=== PATIENT | female | born 1985 | race Two or more races ===

== ENCOUNTER 2017-09-25 22:48 | Emergency (ER) | payer OTHER ==
[2017-09-25] MEDS: diphenhydrAMINE HCL 25 MG CAPSULE PO (23:49)
[2017-09-25] MEDS: predniSONE 10 MG TABLET PO (23:50)
== END 2017-09-25 23:53 | disposition home or self-care (01) ==
LOC: ER 23:53
DX: L25.9 Unspecified contact dermatitis, unspecified cause (principal)
CPT/HCPCS: 99283; J7512; Q0163

== ENCOUNTER 2018-02-03 12:33 | Emergency (ER) | payer OTHER ==
[~2018-02-03] VITALS: Ht 167.6 cm; Wt 62.6 kg
[~2018-02-03 12:33] MED LIST: CIPR250T PO; PRED20TA PO
[2018-02-03 12:43] VITALS: BP 136/68
--- NOTE | 2018-02-03 12:58 | PHYS DOC ---
Past Medical History Past Medical History: No Pertinent History Past Surgical History: No Surgical History Alcohol Use: None Drug Use: None Adult General Chief Complaint Chief Complaint: FLU SYMPTOM HPI HPI 33-year-old female presents to ER with complaints of 2 day history of flulike illness. Patient reports she has had fever, body aches, and generalized fatigue. Patient denies urinary symptoms. LMP 01/18/18. Patient she has been taking DayQuil and Tylenol at home with minimal relief in symptoms. Pt's husb. reports he had similar illness 2 wks ago. On arrival patient has 101.5 temperature. LMP 01/18/18. Review of Systems Review of Systems Constitutional: Reports fever/chills and generalized bodyaches and fatigue Eyes: Denies change in visual acuity, redness, or eye pain [] HENT: Reports sinus congestion/sore throat. Denies earache or difficulty swallowing Respiratory: Denies cough or shortness of breath [] Cardiovascular: Denies CP/palpitations GI: Denies abdominal pain, nausea, vomiting, bloody stools or diarrhea [] : Denies dysuria or hematuria. Denies vaginal sxs Musculoskeletal: Reports generalized bodyaches- denies neck stiffness Integument: Denies rash or skin lesions [] Neurologic: Denies headache, focal weakness or sensory changes [] All other systems were reviewed and found to be within normal limits, except as documented in this note. Current Medications Current Medications Current Medications Medications (Trade) Dose Ordered Sig/Chloe Start Time Stop Time Status Last Admin Dose Admin Ibuprofen (Motrin) 600 mg 1X ONCE 02/03/18 13:00 02/03/18 13:01 DC 02/03/18 13:10 600 MG Oseltamivir Phosphate (Tamiflu) 75 mg DAILY 02/03/18 13:44 02/03/18 14:01 DC 02/03/18 13:53 75 MG Allergies Allergies Allergies Coded Allergies Type Severity Reaction Last Updated Verified No Known Drug Allergies 05/02/14 No Physical Exam Physical Exam Constitutional: Well developed, well nourished, mild distress on initial exam, non-toxic appearance. [] HENT: Normocephalic, atraumatic, bilateral ears normal, mild pharyngeal erythema - no tonsillar/uvula swelling or visible abscess; oropharynx moist, no oral exudates, nose normal. [] Eyes: Pupils equal, conjunctiva normal, no discharge. [] Neck: Normal range of motion, no tenderness, supple, no gross adenopathy. No nuchal rigidity. Cardiovascular: Heart rate regular rhythm, no murmur [] Lungs & Thorax: Bilateral breath sounds clear to auscultation. Resp. equal/ nonlabored Abdomen: Bowel sounds normal, soft, no tenderness, no masses, no pulsatile masses. [] Skin: Warm, dry, no erythema, no rash. [] Back: No tenderness, no CVA tenderness. [] Extremities: No tenderness, no cyanosis, no clubbing, ROM intact, no edema. [] Neurologic: Alert and oriented X 3, normal motor function, normal sensory function, no focal deficits noted. [] Psychologic: Affect normal, judgement normal, mood normal. [] Current Patient Data Vital Signs Vital Signs Date Time Temp Pulse Resp B/P (MAP) Pulse Ox O2 Delivery O2 Flow Rate FiO2 02/03/18 12:43 101.5 117 20 136/68 (90) 99 Room Air 101.5 Lab Values Laboratory Tests Test 02/03/18 12:35 02/03/18 12:55 02/03/18 13:03 Influenza Type A Antigen Positive (NEGATIVE) Influenza Type B Antigen Negative (NEGATIVE) Urine Collection Type Unknown Urine Color Yellow Urine Clarity Clear Urine pH 5.5 Urine Specific [place] >=1.030 Urine Protein 30 mg/dL (NEG-TRACE) Urine Glucose (UA) Negative mg/dL (NEG) Urine Ketones (Stick) 15 mg/dL (NEG) Urine Blood Negative (NEG) Urine Nitrite Negative (NEG) Urine Bilirubin Negative (NEG) Urine Urobilinogen Dipstick 1.0 mg/dL (0.2 mg/dL) Urine Leukocyte Esterase Negative (NEG) Urine RBC 0 /HPF (0-2) Urine WBC 0 /HPF (0-4) Urine Squamous Epithelial Cells Mod /LPF Urine Bacteria 0 /HPF (0-FEW) Urine Mucus Marked /LPF POC Urine HCG, Qualitative Hcg negative (Negative) EKG EKG [] Radiology/Procedures Radiology/Procedures [] Course & Med Decision Making Course & Med Decision Making Pertinent Labs reviewed. (See chart for details) Pt reports some improvement in sxs with Ibuprofen. Discussed test results with + Flu A results. UA unremarkable with neg. UCG. Pt denies any SOA/CP- recheck on HR 92. Patient will be provided dose of Tamiflu while in the ER and prescription will be provided with discharge paperwork. Education provided on [id number] Tylenol and ibuprofen for fever control as directed on container. Encourage increasing fluid intake and well-balanced meal. Education provided on signs and symptoms to return to ER for and discharge instructions were discussed. Discharge patient was nontoxic in appearance and in no visible distress. Pt to f/u with PCP as needed if sxs persist or with concerns. Dragon Disclaimer Dragon Disclaimer This electronic medical record was generated, in whole or in part, using a voice recognition dictation system. Departure Departure Impression: Primary Impression: Influenza A Disposition: HOME, SELF-CARE Condition: STABLE Referrals: GIACOMO FERNANDO MD (PCP) Patient Instructions: Influenza, Adult Additional Instructions: Drink plenty of fluids. Well-balanced meal. Tylenol and ibuprofen for pain and fever control as directed on container. Scripts Oseltamivir Phosphate (TAMIFLU) 75 Mg Capsule 75 MG PO BID for FLU for 5 Days, #10 TAB 0 Refills Prov: DANIEL HATFIELD APRN 02/03/18 DANIEL HATFIELD APRN Feb 03, 2018 12:58
[2018-02-03] MEDS ORDERED: IBUPROFEN 600 MG TABLET. PO ONE (13:00)
[2018-02-03 13:38] LABS: BILIRUBIN,URINE NEGATIVE (NEG); CLARITY,URINE CLEAR; COLOR,URINE YELLOW; NITRITE,URINE NEGATIVE (NEG); PH,URINE 5.5; PROTEIN,URINE 30 mg/dL (NEG-TRACE)
[2018-02-03 13:40] LABS: BACTERIA,URINE 0 /HPF (0-FEW); RBC,URINE 0 /HPF (0-2); SQUAMOUS EPITHELIAL CELL,UR MOD /LPF; WBC,URINE 0 /HPF (0-4)
[2018-02-03 13:41] LABS: INFLUENZA A PATIENT POSITIVE (NEGATIVE); INFLUENZA B PATIENT NEGATIVE (NEGATIVE)
[2018-02-03] MEDS ORDERED: OSELTAMIVIR 75 MG CAPSULE PO SCH (13:44)
[2018-02-03] MEDS ORDERED: OSEL75CA PO (13:53)
== END 2018-02-03 14:01 | disposition home or self-care (01) ==
LOC: ER 12:33
DX: J11.1 Influenza due to unidentified influenza virus with other respiratory manifestations (principal)
CPT/HCPCS: 81001; 81025; 87804; 99284

== ENCOUNTER → 2018-07-15 | Outpatient (CLI) | payer OTHER ==
[~2018-07-15] MED LIST changes: +OSEL75CA PO
--- NOTE | 2018-07-15 15:17 | RAD ---
DATE: 07/15/2018 EXAM: DIGITAL DIAGNOSTIC BILATERAL, BREAST RIGHT HISTORY: Right breast lump COMPARISON: Baseline study This study was interpreted with the benefit of Computerized Aided Detection (CAD). Breast Density: HETERO The breast parenchyma is heterogenously dense, which could reduce sensitivity of mammography. Breast parenchyma level C. FINDINGS: The patient cannot currently pinpoint a lump. Reportedly the area of concern was at the 11:00 location. No breast mass or suspicious microcalcifications are evident. Benign-appearing lymph nodes are noted in the right axillary region. Right breast ultrasound, 07/15/2018: A targeted ultrasound exam of the right breast was performed centered at the 11:00 location. Approximately 7 cm from the nipple at the 11:00 location there is a 7 x 3 x 4 mm hypoechoic nodule. It is wider than tall. It appears to contain a couple of small cysts. There is no posterior acoustic shadowing. This is probably a small fibrocystic lesion. Approximately 4 cm from the nipple at the 11:00 location there is a smaller 2 x 4 x 2 mm hypoechoic nodule. It is wider than tall without posterior acoustic enhancement or shadowing. No internal color flow is seen. This is most likely a complicated cyst or small fibroadenoma. The targeted ultrasound exam revealed no other abnormality. IMPRESSION: 1. There is no mammographic evidence of malignancy in either breast. 2. The targeted ultrasound exam revealed 2 small, probably benign lesions at the 11:00 location. Sonographic surveillance beginning in 4-6 months is suggested. BI-RADS CATEGORY: 3 PROBABLY BENIGN FINDING(S)-SHORT INTERVAL FOLLOW-UP SUGGESTED RECOMMENDED FOLLOW-UP: 6M 6 MONTH FOLLOW-UP PQRS compliance statement: Patient information was entered into a reminder system with a target due date for the next mammogram. Mammography is a sensitive method for finding small breast cancers, but it does not detect them all and is not a substitute for careful clinical examination. A negative mammogram does not negate a clinically suspicious finding and should not result in delay in biopsying a clinically suspicious abnormality. "Our facility is accredited by the [employer] Mammography Program."
--- NOTE | 2018-07-17 09:04 | RAD ---
Ultrasound pelvis complete: History: Pelvic pain Sonographic examination of the pelvis was performed by transabdominal technique and multiple static images were obtained. The uterus appears normal. The endometrium appears normal measures 2.5 mm in thickness. The junctional zone is not well seen. The ovaries are seen with multiple follicles. There is normal ovarian blood flow. The right ovary measures 2.5 x 2.2 x 1.5 cm. Left ovary measures 2.6 x 2.6 x 3.1 cm. There is no free fluid. IMPRESSION: 1. Nonvisualization of the junctional zone of the uterus suggests adenomyosis. This could be incidental but can result in decreased facility. 2. No acute findings. Electronically signed by: Salazar Mullen III, MD (07/17/2018 9:02 AM) [facility]
== END | disposition home or self-care (01) ==
LOC: US 13:21
PROVIDERS: ATTEND Family Medicine
DX: N63.11 Unspecified lump in the right breast, upper outer quadrant (principal)
CPT/HCPCS: 76641; 76856; 77066

== ENCOUNTER → 2019-02-22 | Outpatient (CLI) | payer OTHER ==
--- NOTE | 2019-02-24 15:02 | RAD ---
STUDY: Breast ultrasound diagnostic-right INDICATION: Probably benign abnormalities within the right breast. COMPARISON: Diagnostic breast ultrasound from 07/15/2018 TECHNIQUE: Targeted diagnostic breast sonography on the right. FINDINGS: Targeted evaluation of the right breast from the 9:00 to 12:00 location redemonstrates two adjacent, heterogeneously hypoechoic structures the larger of which measures 0.7 x 0.3 x 0.3 cm and the smaller 0.3 x 0.4 x 0.3 cm. The larger focus is seen at the 11:00 location 7 cm from the nipple and the smaller at the 11:00 location 4 cm from nipple. These have not developed any suspicious sonographic features for malignancy in the interim and are again suggestive of fibroadenomas or complex cysts. No newly seen abnormality throughout the evaluated aspect of the right breast. Morphologically normal right axillary lymph nodes are noted. IMPRESSION: Unchanged size and imaging appearance of two adjacent masses within the right breast at the 11 o'clock location between 4 and 7 cm from the nipple. Given the absence of any change, these are considered benign and no dedicated follow-up is needed unless otherwise clinically indicated. BI-RADS Category 2: Benign. Recommendations: Screening mammography beginning at the age of 40 unless otherwise clinically indicated in which case repeat diagnostic sonography could be performed.
== END | disposition home or self-care (01) ==
LOC: US 14:35
PROVIDERS: ATTEND Family Medicine
DX: N63.11 Unspecified lump in the right breast, upper outer quadrant (principal)
CPT/HCPCS: 76641